=== PATIENT | male | born 1960 | race Caucasian/White ===

== ENCOUNTER 2017-12-23 10:12 | Emergency (ER) | payer OTHER ==
[~2017-12-23] VITALS: Ht 172.7 cm; Wt 90.0 kg
[2017-12-23 10:13] VITALS: BP 168/94
== END 2017-12-23 16:23 | disposition left against medical advice (07) ==
LOC: ER 10:24
DX: Z53.21 Procedure and treatment not carried out due to patient leaving prior to being seen by health care provider (principal)